=== PATIENT | female | born 1955 | race Hispanic/Latino ===

== ENCOUNTER 2019-12-29 08:03 | Observation (INO) | payer MEDICARE, OTHER ==
--- NOTE | 2019-12-25 14:36 | Diagnostic Imaging Report ---
X-ray chest 2 views Comparison: None. History: Preop Findings: Heart size normal. Ascending aorta appears ectatic possibly aneurysmal. Other mediastinal silhouettes unremarkable. No pleural effusion or pneumothorax. Lung chamberlain unremarkable. Upper abdomen unremarkable. Skeletal structures unremarkable. Impression: No acute cardiopulmonary disease. Significant dilatation of the descending aorta possibly aneurysmal. A CTA of the thoracic aorta should be considered. Signed by: Lux Walsh MD on 12/25/2019 2:33 PM
[~2019-12-29] VITALS: Ht 157.5 cm; Wt 84.8 kg
[~2019-12-29 08:03] MED LIST: CENTRUM ADULTS1 EACH PO; LISINOPRIL-HCT1 EACH PO; PRAVACHOL40 MG PO; ROPIVACAINE 246.25 MG, EPINEPHRINE HCL 1:1000 1ML 0.5 MG, CLONIDINE HCL 0.08 MG, KETORO... INJ ONE; VIT C PO; VIT E PO
[2019-12-29] MEDS ORDERED: TRANEXAMIC ACID 1,000 MG/10 ML ML ONE (08:24)
[2019-12-29] MEDS ORDERED: SODIUM CHLORIDE 0.9% 500ML 500 ML ONE (08:24)
[2019-12-29] MEDS ORDERED: VANCOMYCIN HCL 1,000 MG ONE (08:24)
[2019-12-29] MEDS ORDERED: CELECOXIB 200 MG CAP ONE (08:47)
[2019-12-29] MEDS ORDERED: DEXAMETHASONE SOD PHOS 10 MG/1 ML VIAL ONE (08:47)
[2019-12-29] MEDS ORDERED: CEFAZOLIN SOD 1 GM/NS 50ML 100 ML IV ONE (08:47)
[2019-12-29] MEDS ORDERED: GABAPENTIN 300 MG CAP ONE (08:47)
[2019-12-29] MEDS ORDERED: BACITRACIN 50,000 UNIT VIAL ONE (09:33)
[2019-12-29] MEDS ORDERED: HYDROGEN PEROXIDE 120 ML BTL ONE (11:39)
[2019-12-29] MEDS ORDERED: HYDROCODONE/APAP 7.5MG-325MG 1 EA TAB PO PRN (11:45)
[2019-12-29] MEDS ORDERED: DIPHENHYDRAMINE HCL INJ 50 MG/ML VIAL IV PRN (11:45)
[2019-12-29] MEDS ORDERED: ACETAMINOPHEN 650 MG SUPP PR PRN (11:45)
[2019-12-29] MEDS ORDERED: ONDANSETRON HCL INJ 2MG/ML 2ML 2 MG/ML VIAL IV PRN (11:45)
[2019-12-29] MEDS ORDERED: SODIUM CHLORIDE 0.9% 1000ML 1,000 ML IV SCH (11:45)
[2019-12-29] MEDS ORDERED: KETOROLAC TROMETHAMINE 30 MG/ML VIAL IV PRN (11:45)
[2019-12-29] MEDS ORDERED: HYDROCODONE/APAP 5MG-325MG TAB PO PRN (11:45)
[2019-12-29] MEDS ORDERED: DOCUSATE SODIUM 100 MG CAP PO PRN (11:45)
--- NOTE | 2019-12-29 12:23 | Diagnostic Imaging Report ---
Left knee, 2 views. History: Post op. Findings: Status post total left knee arthroplasty with prosthetic components in anatomic alignment. Overlying post-surgical air and skin oren are present. IMPRESSION: Status post left knee replacement in anatomic position. Signed by: Misael Hernandez on 12/29/2019 12:19 PM
--- OUTSIDE RECORDS SUMMARY | 2019-12-29 12:39 | XMS REPORT | Clinical Summary ---
Author Author [facility] Organization [facility] Address Unknown Phone Unavailable Care Team Providers Care Tool Liaison Name Role Phone Dakota Xavier MD PCP Pcp, No PCP Unavailable Allergies No Known Allergies Medications End Date Status Medication Sig Dispensed Refills Start Date Active Miscellaneous Medical ONE 1 Each 0 02/20 Supply Misc DISABILITY 7 [employer].. Active lisinopril-hydrochlorothi Take 1.5 135 tablet 0 azide (PRINZIDE, tablets by 8 ZESTORETIC) 20-12.5 mg mouth daily. per tabletIndications: Essential hypertension with goal blood pressure less than 140/90 Active atorvastatin (LIPITOR) 40 Take 1 tablet 90 tablet 0 mg tabletIndications: by mouth at 8 Dyslipidemia bedtime nightly. Active traMADol (ULTRAM) 50 mg Take 1 tablet 30 tablet 1 tabletIndications: by mouth 8 Bilateral chronic knee daily as pain needed for Pain. Active Miscellaneous Medical by 1 Each 0 Supply MiscIndications: Misc.(Non-Manolo 8 Bilateral chronic knee g; Combo pain Route) route One disability parking placard. Active naproxen (NAPROSYN) 500 Take 1 tablet 60 tablet 1 mg tabletIndications: by mouth 2 8 Chronic pain of both times daily knees (with meals). 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 08/14/2016 Dyslipidemia 11/16/2014 BMI 37.0-37.9, adult 11/16/2014 Essential hypertension, benign 08/20/2014 Closed fracture of part of fibula Immunizations Name Administration Dates Next Due Herpes Zoster Vaccine In 04/11/2015 Clinic Influenza Vaccine 07/17/2016 (Deferred: Patie nt Refused), 06/13/2015, 07/02/2014 Influenza Vaccine, 05/22/2017 Seasonal, Injectable Influenza, 04/23/2018 Vaccine<FLUCELVAX>(Multi- Dose) Tdap Tetanus, diphtheria, 04/11/2015 acellular pertussis Vaccine Family History Medical History Relation Name Comments Cancer Father prostate Stroke Father Arthritis Mother Hypertension Mother Relation Name Status Comments Brother Alive 3 Daughter Alive 1 Father STROKE Maternal Grandfather Maternal Grandmother Mother KIDNEY Paternal Grandfather Paternal Grandmother Sister Alive 4 Son Alive 3 Social History Date Tobacco Use Types Packs/Day Years Used Current Every Day Smoker Pipe, 0.25 30 Cigarettes Smokeless Tobacco: Never Used Tobacco Cessation: Counseling Given: No Comments: 3 cig/day Drinks/Week oz/Week Comments Alcohol Use No Food Insecurity Answer Date Recorded Within the past 12 months, you worried that your Never viji e 04/23/2018 food would run out before you got money to buy more. Within the past 12 months, the food you bought Never true 04/23/2018 just didn't last and you didn't have mo zaida to get more. Sex Assigned at Date Recorded Not on file Industry Job Start Date Occupation Not on file Not on file Not on file Travel End Travel History Travel Start No recent travel history available. Last Filed Vital Signs Not on file Plan of Treatment Health Maintenance Due Date Last Done Comments Breast Cancer Scrn 05/14/2019 05/14/2018, 017, 01/05/2016, (Yearly) Additional history exists Colonoscopy 3yr 09/06/2019 09/06/2016 IMM Pneumococcal Age 64 11/05/2019 and Up Results Not on fileafter 12/28/2018
--- OUTSIDE RECORDS SUMMARY | 2019-12-29 12:39 | XMS REPORT | Continuity of Care Document ---
Author Author [facility] t Organization [facility] Address [address] [place] [address] Phone Unavailable Care Team Providers Care Set Rider Name Role Phone Naomi Xavier MD PCP AASHISH CHRISTENSEN Attphys Unavailable ADRIAN ESPINOZA Admphydanny Unavailable Problems Condition Name Condition Details Condition Category Status Onset Date Resolution Date Last Treatment Date Treating Clinician Comments Source Right knee pain Right knee pain Disease Active 2018-06-12 00:00:00 [facility] Difficulty walking Difficulty walking Disease Active 2018-05-28 00:00:0 0 [facility] Chronic pain of both knees Chronic pain of both knees Disease Active 2018-05-15 00:00:00 [facility] Electronic cigarette use Electronic cigarette use Disease Acti ve 2017-11-18 00:00:00 [facility] Former cigarette smoker Former cigarette smoker Disease Active 2017-11-18 00:00:00 [facility] Gastroesophageal reflux disease Gastroesophageal reflux disease Dis ease Active 2017-11-18 00:00:00 [facility]alth Screening for osteoporosis Screening for osteoporosis Disease Active 2017-11-18 00:00:00 [facility] Right ankle swelling Right ankle swelling Disease Active 00:00:00 [facility] Acute right ankle pain Acute right ankle pain Disease Active 2017-01-18 00:00:00 [facility] Weakness of right lower extremity Weakness of right lower extrem ity Disease Active 2017-01-18 [facility] Impaired functional mobility, balance, and endurance I mpaired functional mobility, balance, and endurance Disease Active 2017-01-18 00:00:00 [facility] Tubular adenoma - repeat colonoscopy in 2019 Tubular a denoma - repeat colonoscopy in 2019 Disease Active 2016-10-31 00:00:00 [facility] Closed fracture of distal end of left fibula with nonu nion 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 Disease Active 2016-08-14 00:00:0 0 [facility] Dyslipidemia Dyslipidemia Disease Active 2014-11-16 00:00:00 [facility] BMI 37.0-37.9, adult BMI 37.0-37.9, adult Disease Active 00:00:00 [facility] Essential hypertension, benign Essential hypertension, benign Disea se Active 2014-08-20 00:00:00 [facility] Closed fracture of part of fibula Closed fracture of part of fib smith Disease Active [facility] Allergies, Adverse Reactions, Alerts This patient has no known allergies or adverse reactions. Family History Family Member Diagnosis Comments Start Date Stop Date Source Natural father [facility] Natural father [facility] Natural mother Arthritis [facility] Natural mother [facility] Social History Social Habit Start Date Stop Date Quantity Comments Source History of tobacco use Cigarette Smoker [facility] Sex Assigned At [facility] Cigarettes smoked current (pack per day) - Reported 00:00:00 2018-12-24 00:00:00 [facility] Cigarette pack-years 2018-12-24 00:00:00 2018-12-24 00:00:00 [facility] Alcohol intake 2018-12-24 00:00:00 2018-12-24 00:00:00 [facility] History SDOH Food Worry 2018-04-23 00:00:00 2018-04-23 00:00:00 [facility] SDOH Food Scarcity 2018-04-23 00:00:00 2018-04-23 00:00:00 1 [facility] Tobacco Comment 2014-07-02 00:00:00 2014-07-02 00:00:00 3 cig/day [facility] Smoking Status Start Date Stop Date Source Current every day smoker 2018-12-24 00:00:00 [facility] Medications Ordered Medication Name Filled Medication Name Start Date Stop Da te Current Medication? Ordering Clinician Indication Dosage Frequency Signature (SIG) Comments Components Source naproxen (NAPROSYN) 500 mg tablet 2018-05-19 00:00:00 Yes Chronic pain of both knees 500mg Take 1 tablet by mouth 2 times daily (with meal s). [facility] lisinopril-hydrochlorothiazide (PRINZIDE, ZESTORETIC) 20-12. 5 mg per tablet 2018-04-23 00:00:00 Yes Essential hy pertension with goal blood pressure less than 140/90 1.5{tbl} QD Take 1.5 tablets by mouth daily. [facility] atorvastatin (LIPITOR) 40 mg tablet 2018-04-23 00:00:00 Yes Dyslipidemia 40mg Take 1 tablet by mouth at bedtime nightly. [facility] traMADol (ULTRAM) 50 mg tablet 2018-04-23 00:00:00 Yes Bilateral chronic knee pain 50mg Take 1 tablet by mouth daily as needed for Pain . [facility] Miscellaneous Medical Supply [facility] 2018-04-23 00:00:00 Yes Bilateral chronic knee pain by [facility].(Non-Drug; C ombo Route) route One disability parking placard. [facility] Miscellaneous Medical Supply [facility] 2017-03-11 00:00:00 Yes ONE DISABILITY PARKING PLACARD.. [facility] Immunizations Ordered Immunization Name Filled Immunization Name Date Status Comments Source Influenza, Vaccine<FLUCELVAX>(Multi-Dose) 2018-04-23 00:00 :00 [facility] Influenza Vaccine, Seasonal, Injectable 2017-05-22 00:00:0 0 Completed [facility] Influenza Vaccine 2015-06-13 00:00:00 Completed [facility] Herpes Zoster Vaccine In Clinic 2015-04-11 00:00:00 Comple [facility] Tdap Tetanus, diphtheria, acellular pertussis Vaccine 2015-04-11 00:00:00 [facility] Influenza Vaccine 2014-07-02 00:00:00 [facility] Procedures This patient has no known procedures. Plan of Care Planned Activity Planned Date Details Comments Source Future Scheduled Test 2019-11-05 00:00:00 IMM Pneumococcal A ge 65 and Up [code = IMM Pneumococcal Age 65 and Up] [facility] Scheduled Test 2019-09-06 00:00:00 Colonoscopy 3yr [c ode = Colonoscopy 3yr] [facility] Scheduled Test 2019-05-14 00:00:00 Breast Cancer Scrn (Yearly) [code = Breast Cancer Scrn (Yearly)] [facility] Encounters Start Date/Time End Date/Time Encounter Type Admission Type Attendi [facility] Care Department Encounter ID Source 2019-03-16 00:00:00 2019-03-16 00:00:00 Outpatient [facility] [id number] [facility] 2018-10-14 14:12:17 2018-10-14 14:12:17 Outpatient [facility] [id number] [facility] 2018-08-05 00:00:00 2018-08-05 00:00:00 Outpatient [facility] [id number] [facility] 2018-07-23 00:00:00 2018-07-23 00:00:00 Outpatient [facility] [id number] [facility] 2018-07-11 00:00:00 2018-07-11 00:00:00 Outpatient [facility] [id number] [facility] 2018-06-24 10:09:07 2018-06-24 10:09:07 Outpatient [facility] [id number] [facility] 2018-06-23 00:00:00 2018-06-23 00:00:00 Outpatient [facility] [id number] [facility] 2018-06-17 00:00:00 2018-06-17 00:00:00 Outpatient [facility] [id number] [facility] 2018-06-16 08:23:11 2018-06-16 08:23:11 Outpatient [facility] [id number] [facility] 2018-06-16 08:18:06 2018-06-16 08:18:06 Outpatient [facility] [id number] [facility] 2018-06-12 15:03:09 2018-06-12 15:03:09 Emergency [facility] [id number] [facility] 2018-06-12 14:10:21 2018-06-12 14:10:21 Emergency [facility] [id number] [facility] 2018-06-11 08:04:14 2018-06-11 08:04:14 Outpatient [facility] [id number] [facility] 2018-06-06 00:00:00 2018-06-06 00:00:00 Outpatient [facility] [id number] [facility] 2018-06-05 10:30:54 2018-06-05 10:30:54 Outpatient [facility] [id number] [facility] 2018-06-05 08:15:32 2018-06-05 08:15:32 Outpatient [facility] [id number] [facility] 2018-05-28 13:30:18 2018-05-28 13:30:18 Outpatient [facility] [id number] [facility] 2018-05-28 00:00:00 2018-05-28 00:00:00 Outpatient [facility] [id number] [facility] 2018-05-19 10:43:44 2018-05-19 10:43:44 Outpatient [facility] [id number] [facility] 2018-05-19 10:41:42 2018-05-19 10:41:42 Outpatient [facility] [id number] [facility] 2018-05-14 09:59:39 2018-05-14 09:59:39 Outpatient [facility] [id number] [facility] 2018-05-14 08:44:13 2018-05-14 08:44:13 Outpatient [facility] [id number] [facility] 2018-05-14 08:36:17 2018-05-14 08:36:17 Outpatient [facility] [id number] [facility] 2018-04-24 00:00:00 2018-04-24 00:00:00 Outpatient [facility] [id number] [facility] 2018-04-23 16:05:38 2018-04-23 16:05:38 Outpatient [facility] [id number] [facility] 2018-04-23 14:43:20 2018-04-23 14:43:20 Outpatient [facility] [id number] [facility] 2017-12-18 09:26:27 2017-12-18 09:26:27 Outpatient [facility] [id number] [facility] 2017-12-04 10:14:53 2017-12-04 10:14:53 Outpatient [facility] [id number] [facility] 2017-11-20 13:04:52 2017-11-20 13:04:52 Outpatient [facility] [id number] [facility] 2017-11-18 13:49:07 2017-11-18 13:49:07 Outpatient [facility] [id number] [facility] 2017-07-03 08:07:55 2017-07-03 08:07:55 Outpatient [facility] [id number] [facility] 2017-05-22 09:19:33 2017-05-22 09:19:33 Outpatient [facility] [id number] [facility] 2017-05-21 10:54:37 2017-05-21 10:54:37 Outpatient [facility] [id number] [facility] 2017-05-02 13:58:18 2017-05-02 13:58:18 Outpatient [facility] [id number] [facility] 2017-04-29 08:55:45 2017-04-29 08:55:45 Outpatient [facility] [id number] [facility] 2017-04-24 09:03:24 2017-04-24 09:03:24 Outpatient [facility] [id number] [facility] 2017-04-09 00:00:00 2017-04-09 00:00:00 Outpatient [facility] [id number] [facility] 2017-04-03 13:20:56 2017-04-03 13:20:56 Outpatient [facility] [id number] [facility] 2017-03-21 00:00:00 2017-03-21 00:00:00 Outpatient [facility] [id number] [facility] 2017-03-13 07:41:17 2017-03-13 07:41:17 Outpatient [facility] [id number] [facility] 2017-03-13 00:00:00 2017-03-13 00:00:00 Outpatient [facility] [id number] [facility] 2017-03-07 10:40:08 2017-03-07 10:40:08 Outpatient [facility] [id number] [facility] 2017-02-27 15:05:17 2017-02-27 15:05:17 Outpatient [facility] [id number] [facility] 2017-02-27 12:50:14 2017-02-27 12:50:14 Outpatient [facility] [id number] [facility] 2017-02-27 09:46:46 2017-02-27 09:46:46 Outpatient [facility] [id number] [facility] 2017-02-27 00:00:00 2017-02-27 00:00:00 Outpatient [facility] [id number] [facility] 2017-02-20 00:00:00 2017-02-20 00:00:00 Outpatient [facility] [id number] [facility] 2017-02-05 15:55:05 2017-02-05 15:55:05 Outpatient [facility] [id number] [facility] 2017-01-31 10:16:31 2017-01-31 10:16:31 Outpatient [facility] [id number] [facility] 2017-01-23 09:37:36 2017-01-23 09:37:36 Outpatient [facility] [id number] [facility] 2017-01-08 09:48:34 2017-01-08 09:48:34 Outpatient [facility] [id number] [facility] Results Test Description Test Time Test Comments Results Result Comments Source KNEE LEFT 1-2 VIEWS 2019-12-29 12:19:00 [place] [address] Patient Name: ESTEPHANIA MOSS MR #: [id number] : 1955 Age/Sex: 64/F Req #: [id number] Adm Physician: Ordered by: AASHISH CHRISTENSEN MD Report #: [id number] Location: OR Room/Bed: Procedure: DX/KNEE LEFT 1-2 VIEWS Exam Date: Exam Time: REPORT STATUS: Signed Left knee, 2 views. History: Post op. Findings: Status post total left knee arthroplasty with prosthetic components in anatomic alignment. Overlying post-surgical air and skin oren are present. IMPRESSION: Status post left knee replacement in anatomic position. Signed by: Misael Hernandez on 12/29/2019 12:19 PM Dictated By: MISAEL HERNANDEZ MD 18 Transcribed By: URBANO on 12/29/191218 COPY TO: AASHISH CHRISTENSEN MD CHEST 2 VIEWS 2019-12-25 14:31:00 [place] [address] Patient Name: ESTEPHANIA MOSS MR #: [id number] : 1955 Age/Sex: 64/F Req #: [id number] Adm Physician: Ordered by: AASHISH CHRISTENSEN MD Report #: [id number] Location: OR Room/Bed: Procedure: [id number] DX/CHEST 2 VIEWS Exam Date: 12/25/19 Exam Time: 1250 REPORT STATUS: Signed X-ray chest 2 views Comparison: None. History: Preop Findings: Heart size normal. Ascending aorta appears ectatic possibly aneurysmal. Other mediastinal silhouettes unremarkable. No pleural effusion or pneumothorax. Lung chamberlain unremarkable. Upper abdomen unremarkable. Skeletal structures unremarkable. Impression: No acute cardiopulmonary disease. Significant dilatation of the descending aorta possibly aneurysmal. A CTA of the thoracic aorta should be considered. Signed by: Vlad Pickett MD on 12/25/2019 2:33 PM Dictated By: VLAD PICKETT MD [id number] Transcribed By: URBANO on 12/25/19 1433 COPY TO: AASHISH CHRISTENSEN MD
[2019-12-29 15:34] VITALS: BP 115/62
[2019-12-29 15:37] VITALS: BP 115/62
[2019-12-29 15:51] VITALS: BP 112/50
[2019-12-29] MEDS: CELECOXIB 100 MG CAP PO SCH (16:57)
[2019-12-29] MEDS: CEFAZOLIN SOD 1 GM/NS 50ML 50 ML IV SCH ×2 (16:57→23:29)
[2019-12-29] MEDS: ASPIRIN 325 MG TAB PO SCH (16:57)
[2019-12-29] MEDS ORDERED: ACETAMINOPHEN 1000 MG/100 ML IV PRN (17:00)
--- NOTE | 2019-12-29 18:04 | Operative Report ---
DATE OF PROCEDURE: 12/29/2019 SURGEON: Sudhir Barber MD MANAGER UTILIZATION REVIEW: Chinmay Weinstein, certified PA. PREOPERATIVE DIAGNOSIS: Osteoarthritis, left knee. POSTOPERATIVE DIAGNOSIS: Osteoarthritis, left knee. PROCEDURE: Left total knee arthroplasty. INDICATIONS: The patient is a 64-year-old lady, who has end-stage arthritis of her left knee. She has failed conservative management and would like to proceed with a left total knee replacement. The risks and benefits of the procedure have been discussed in detail. All of her questions have been answered. She states she understands and wishes to proceed. PROCEDURE IN DETAIL: The patient was brought to the operating room and placed under general anesthetic. Her left lower extremity was prepped and draped in a sterile manner. She received a regional block, tranexamic acid, and prophylactic antibiotics in the holding area. The left lower extremity was exsanguinated and a proximal tourniquet was inflated to 300 mmHg. An anterior incision with a medial parapatellar arthrotomy was performed. Clear synovial fluid was removed from the joint. Soft tissue releases were performed to bring the knee up into flexion with the patella everted. Notable marginal osteophytes were removed with a pair of rongeur forceps. Meniscal remnants and the cruciate ligaments were sacrificed. A [employer] knee system was used with ultracongruent tibial insert. Initial attention was directed towards the proximal tibia. The tibial cut was made with an extra medullary cutting guide. The tibial base plate was a size 4. The central fin punch was impacted and attention was directed towards the distal femur. An intramedullary cutting guide was used to resect the distal femur in 5 degrees of valgus and rotation, referencing off a combination of landmarks including Whitesides line, the epicondylar axis, and the posterior condyles. The femoral component was a size 6. The anterior and posterior cuts were made. Trial reductions were performed. A 9 mm ultracongruent tibial insert provided appropriate soft tissue balancing in full extension and 90 degrees of flexion. The patella was resurfaced with a 2 mm x 9 mm patellar button. The thickness was checked before and after resurfacing, it was right around 23 mm. Patellar tracking was noted to be concentric. All of the trial implants were removed. A 100 mL premixed pericapsular BEA injection was placed into the surrounding soft tissue. The knee was thoroughly irrigated with a shower tip pulsatile lavage in a diluted mixture of polymyxin and vancomycin spray. The components were cemented into place using a single mix of high viscosity Biomet cement preloaded with antibiotics. Care was taken to remove extravasated cement. The wound was further irrigated while the cement cured. The arthrotomy was then closed with interrupted #1 Ethibond. The knee was put through flexion and extension to ensure a secure closure of the arthrotomy. The skin was closed with subcuticular Vicryl and oren. A sterile Aquacel bandage was applied. The patient was extubated and transported to the recovery room in stable condition. Blood loss was minimal. All needle and sponge counts were correct. Sudhir Barber MD DR/MARLI /[id number]
[2019-12-29] MEDS ORDERED: SEVOFLURANE INHAL SOLN 250 ML PEN BTL ONE (18:26)
[2019-12-29] MEDS ORDERED: ROCURONIUM BROMIDE 10 MG/ML 5ML VIAL IV ONE (18:26)
[2019-12-29] MEDS ORDERED: ONDANSETRON HCL INJ 2MG/ML 2ML 2 MG/ML VIAL ONE (18:26)
[2019-12-29] MEDS ORDERED: LIDOCAINE HCL 2% LOCAL INJ 5 ML SDV VIAL INJ ONE (18:26)
[2019-12-29] MEDS ORDERED: LABETALOL HCL 5 MG/ML 20ML VIAL ONE (18:26)
[2019-12-29] MEDS ORDERED: PROPOFOL IV EMULSION 10 MG/ML 20 ML VIAL ONE (18:26)
[2019-12-29] MEDS ORDERED: NEOSTIGMINE 1 MG/ML 10ML VIAL ONE (18:26)
[2019-12-29] MEDS ORDERED: GLYCOPYRROLATE INJ 0.2 MG/ML VIAL ONE (18:26)
--- NOTE | 2019-12-29 19:10 | NUR ---
RECEIVED REPORT FROM PREVIOUS NURSE. CALL LIGHT WITHIN REACH. PATIENT IN BED.
[2019-12-29 20:00] VITALS: BP 117/58
[2019-12-29 20:17] VITALS: BP 112/50
[2019-12-29 20:59] VITALS: BP 117/58
[2019-12-29] MEDS ORDERED: ZOLPIDEM TARTRATE 5 MG TAB PO PRN (21:00)
[2019-12-30] VITALS: BP 97/51
[2019-12-30 04:00] VITALS: BP_SYST 111; BP_SYST 139; BP_DIAS 55; BP_DIAS 85
[2019-12-30 05:45] LABS: HEMATOCRIT 31.5 % (34.2-44.1); HEMOGLOBIN 10.4 g/dL (12.0-16.0)
--- NOTE | 2019-12-30 07:03 | NUR ---
GAVE BEDSIDE SHIFT REPORT TO ONCOMING NURSE. CALL LIGHT WITHIN REACH. PATIENT IN BED. HOURLY ROUNDING PERFORMED.
[2019-12-30 08:04] VITALS: BP 106/54
[2019-12-30] MEDS: CELECOXIB 100 MG CAP PO SCH (08:31)
[2019-12-30] MEDS: ASPIRIN 325 MG TAB PO SCH (08:31)
[2019-12-30] MEDS: CEFAZOLIN SOD 1 GM/NS 50ML 50 ML IV SCH (08:31)
--- NOTE | 2019-12-30 08:36 | NUR ---
DR SELLERS OFFICE PREARRANGED FOLLOWING DISCHARGE PLAN OF: [address] [facility] CONFIRMED WITH [phone] [facility] [employer] [facility] [employer]. AND CPM. PROVIDED BY [facility] [place] [phone] Alice GARCIA SIGNED AND ON CHART COPY LEFT WITH PATIENT GAVE CARD FOR QUESTIONS AND OR CONCERNS.
--- NOTE | 2019-12-30 09:27 | Consultation ---
DATE OF CONSULTATION: PRIMARY CARE PHYSICIAN: Dr. Stephon Galan MD. REASON FOR CONSULTATION: Medical management. HISTORY OF PRESENT ILLNESS: The patient is a 64 years female, status post left total knee replacement. The patient is postoperatively stable. No chest pain and no shortness of breath. The patient is given physical therapy. Left knee seemed to be stable. Dressing intact. PAST MEDICAL HISTORY: Hypertension and osteoarthritis. PAST SURGICAL HISTORY: Hysterectomy. SOCIAL HISTORY: The patient does not smoke or use alcohol. No regular drug use. ALLERGIES: VITAMIN E. HOME MEDICATIONS: List reviewed. REVIEW OF SYSTEMS: As mentioned above. Left knee postoperative pain appropriate. No chest pain or shortness of breath. PHYSICAL EXAMINATION: VITAL SIGNS: Temperature is 98, blood pressure 106/64, pulse rate 57, respirations 18. GENERAL: The patient is in no acute distress. HEENT: Normocephalic, atraumatic, and anicteric. NECK: Supple grossly. PULMONARY: Clear. CARDIOVASCULAR: regular rate and rhythm. ABDOMEN: Soft. EXTREMITIES: Status post left total knee replacement. NEUROLOGIC: No focal deficit. LABORATORY DATA: Hemoglobin and hematocrit is 10.4 and 31.5. IMPRESSION: 1. Hypertension, good control. 2. Osteoarthritis, status post left total knee arthroplasty. 3. Slight anemia, but no bleed. PLAN: Resume home medication on discharge. PT and OT. Pain control. Thank you, Dr. Barber for this consultation. We will follow up the patient until she is discharged. MD VARINDER Veronica/MODL /[id number]
[2019-12-30 12:27] VITALS: BP 122/50
--- NOTE | 2019-12-30 13:10 | NUR ---
Pt discharged home at this time. Pt is aox3 and able to verbalize needs. Pt verbalized understanding of all discharge instructions and follow up appointments. Dr. Barber called pain medications to pt pharmacy of choice. Dressing to left knee is dry and intact.
[2019-12-30] MEDS ORDERED: SIMVASTATIN 40 MG TAB PO SCH (21:00)
== END 2019-12-30 13:09 | disposition home or self-care (01) ==
LOC: OR 08:03 → PACU V 11:40 → MED/SURG 14:43
PROVIDERS: ADMIT Specialist; ATTEND Specialist
DX: M17.12 Unilateral primary osteoarthritis, left knee (principal); I10 Essential (primary) hypertension; D64.9 Anemia, unspecified; K21.9 Gastro-esophageal reflux disease without esophagitis; K44.9 Diaphragmatic hernia without obstruction or gangrene; E78.00 Pure hypercholesterolemia, unspecified; Z72.0 Tobacco use; Z82.3 Family history of stroke; Z82.62 Family history of osteoporosis; Z88.8 Allergy status to other drugs, medicaments and biological substances; Z11.59 Encounter for screening for other viral diseases; Z01.810 Encounter for preprocedural cardiovascular examination; Z01.812 Encounter for preprocedural laboratory examination; Z01.818 Encounter for other preprocedural examination
CPT/HCPCS: 27447; 36415; 71046; 73560; 85014; 85018; 86850; 86900; 86920; 87635; 93005; 97116 ×2; 97161; 97530; C1713; G0378 ×2; J0171; J0690 ×2; J1100; J1885; J2001; J2405; J2704; J2710; J2795; J3370; J3490; J7030; J7040

== ENCOUNTER 2021-01-16 05:31 | Observation (INO) | payer MEDICARE ==
[2021-01-12 11:05] LABS: BASOPHILS # (AUTO) 0.1 (0.0-0.1); BASOPHILS % 0.4 % (0.0-1.0); HEMATOCRIT 38.7 % (34.2-44.1); HEMOGLOBIN 12.9 g/dL (12.0-16.0); LYMPHOCYTES % 22.1 % (18.0-39.1); MEAN CORPUSCULAR HEMOGLOBIN 33.5 pg (28-32); MEAN CORPUSCULAR HGB CONC 33.3 g/dL (31-35); MEAN CORPUSCULAR VOLUME 100.5 fL (81-99); MONOCYTES # (AUTO) 1.1 (0.2-0.8); MONOCYTES % 8.1 % (4.4-11.3); NEUTROPHILS # (AUTO) 9.2 (2.1-6.9); NEUTROPHILS % 68.9 % (38.7-80.0); PLATELET COUNT 301 x10e3/uL (140-360); RED BLOOD COUNT 3.85 x10e6/uL (3.6-5.1); RED CELL DISTRIBUTION WIDTH 13.7 % (11.7-14.4)
[2021-01-12 11:40] LABS: ANION GAP 11.8 mmol/L (8-16); CALCIUM 9.5 mg/dL (8.4-10.2); CREATININE, SERUM 0.69 mg/dL (0.57-1.11); POTASSIUM 3.8 mmol/L (3.5-5.1)
[~2021-01-16] VITALS: Ht 157.5 cm; Wt 84.4 kg
[~2021-01-16 05:31] MED LIST changes: -ROPIVACAINE 246.25 MG, EPINEPHRINE HCL 1:1000 1ML 0.5 MG, CLONIDINE HCL 0.08 MG, KETORO... INJ ONE
[2021-01-16] MEDS ORDERED: DEXAMETHASONE SOD PHOS 10 MG/1 ML VIAL ONE (06:37)
[2021-01-16] MEDS ORDERED: CELECOXIB 200 MG CAP ONE (06:37)
[2021-01-16] MEDS ORDERED: SODIUM CHLORIDE 0.9% 50ML 100 ML ONE (06:37)
[2021-01-16] MEDS ORDERED: GABAPENTIN 300 MG CAP ONE (06:37)
[2021-01-16] MEDS ORDERED: SODIUM CHLORIDE 0.9% 500ML 500 ML ONE (06:53)
[2021-01-16] MEDS ORDERED: Vancomycin IV 1,000 MG ONE (06:53)
[2021-01-16] MEDS ORDERED: TRANEXAMIC ACID 1,000 MG/10 ML ML ONE (06:54)
[2021-01-16] MEDS ORDERED: ROPIVACAINE 246.25 MG, EPINEPHRINE HCL 1:1000 1ML 0.5 MG, CLONIDINE HCL 0.08 MG, KETORO... INJ ONE ×5 (08:00)
[2021-01-16] MEDS ORDERED: HYDROCODONE/APAP 5MG-325MG TAB PO PRN (09:15)
[2021-01-16] MEDS ORDERED: ONDANSETRON HCL INJ 2MG/ML 2ML 2 MG/ML VIAL IV PRN (09:15)
[2021-01-16] MEDS ORDERED: ACETAMINOPHEN 650 MG SUPP PR PRN (09:15)
[2021-01-16] MEDS ORDERED: DIPHENHYDRAMINE HCL INJ 50 MG/ML VIAL IV PRN (09:15)
[2021-01-16] MEDS ORDERED: ZOLPIDEM TARTRATE 5 MG TAB PO PRN (09:15)
[2021-01-16] MEDS ORDERED: DOCUSATE SODIUM 100 MG CAP PO PRN (09:15)
[2021-01-16] MEDS ORDERED: MEPERIDINE HCL INJ 25 MG/ML VIAL ONE (09:44)
[2021-01-16] MEDS ORDERED: FENTANYL CITRATE/PF 100MCG/2 ML INJ ONE ×2 (10:05→12:29)
[2021-01-16] MEDS ORDERED: ROPIVACAINE 0.5% 5 MG/ML 30 ML SDV ONE (10:26)
[2021-01-16] MEDS ORDERED: LIDOCAINE 2%/ EPINEPHRINE 20ML MDV ONE (10:26)
[2021-01-16 11:18] VITALS: BP 119/61
[2021-01-16] MEDS: SODIUM CHLORIDE 0.9% 1000ML 1,000 ML IV SCH ×2 (11:30→21:00)
[2021-01-16 11:35] VITALS: BP 139/75
[2021-01-16] MEDS ORDERED: MIDAZOLAM HCL 2 MG/2 ML VIAL ONE (12:29)
[2021-01-16 16:06] VITALS: BP 118/54
[2021-01-16] MEDS: Cefazolin 1 GM in SODIUM CHLORIDE 0.9% 50ML 50 ML IV SCH ×2 (16:24→23:36)
[2021-01-16] MEDS: ASPIRIN 325 MG TAB PO SCH (16:24)
[2021-01-16] MEDS: CELECOXIB 200 MG CAP PO SCH (16:24)
[2021-01-16] MEDS ORDERED: PROPOFOL IV EMULSION 10 MG/ML 20 ML VIAL ONE (19:30)
[2021-01-16] MEDS ORDERED: PHENYLEPHRINE HCL 1% 10 MG/ML VIAL ONE (19:30)
[2021-01-16] MEDS ORDERED: LIDOCAINE HCL 2% LOCAL INJ 5 ML SDV VIAL INJ ONE (19:30)
[2021-01-16] MEDS ORDERED: DEXAMETHASONE SOD PHOS INJ 4 MG/ML VIAL ONE (19:30)
[2021-01-16] MEDS ORDERED: SEVOFLURANE INHAL SOLN 250 ML PEN BTL ONE (19:30)
[2021-01-16] MEDS ORDERED: POVIDONE IODINE 0.05% 0.05 % ML PO ONE (19:30)
[2021-01-16] MEDS ORDERED: KETOROLAC TROMETHAMINE 30 MG/ML VIAL ONE (19:30)
[2021-01-16] MEDS ORDERED: ONDANSETRON HCL INJ 2MG/ML 2ML 2 MG/ML VIAL ONE (19:30)
[2021-01-16 20:00] VITALS: BP 140/67
[2021-01-16] MEDS: HYDROCODONE/APAP 7.5MG-325MG 1 EA TAB PO PRN (21:02)
[2021-01-16 21:16] VITALS: BP 140/67
[2021-01-16] MEDS ORDERED: HYDRALAZINE HCL 25 MG TAB PO PRN (22:00)
[2021-01-16] MEDS: KETOROLAC TROMETHAMINE 30 MG/ML VIAL IV PRN (23:47)
[2021-01-17] VITALS: BP 119/63
[2021-01-17 04:00] VITALS: BP 123/63
[2021-01-17 06:03] LABS: BASOPHILS % 0.3 % (0.0-1.0); HEMATOCRIT 29.3 % (34.2-44.1); HEMOGLOBIN 9.8 g/dL (12.0-16.0); LYMPHOCYTES # (AUTO) 2.3 (1.0-3.2); LYMPHOCYTES % 19.9 % (18.0-39.1); MEAN CORPUSCULAR HEMOGLOBIN 33.4 pg (28-32); MEAN CORPUSCULAR HGB CONC 33.4 g/dL (31-35); MONOCYTES # (AUTO) 1.2 (0.2-0.8); MONOCYTES % 10.6 % (4.4-11.3); NEUTROPHILS % 68.8 % (38.7-80.0); PLATELET COUNT 218 x10e3/uL (140-360); RED BLOOD COUNT 2.93 x10e6/uL (3.6-5.1); RED CELL DISTRIBUTION WIDTH 13.5 % (11.7-14.4)
[2021-01-17] MEDS: KETOROLAC TROMETHAMINE 30 MG/ML VIAL IV PRN (06:07)
[2021-01-17 06:20] LABS: ANION GAP 10.9 mmol/L (8-16); CALCIUM 8.4 mg/dL (8.4-10.2); CREATININE, SERUM 0.69 mg/dL (0.57-1.11); POTASSIUM 3.9 mmol/L (3.5-5.1)
[2021-01-17] MEDS: Cefazolin 1 GM in SODIUM CHLORIDE 0.9% 50ML 50 ML IV SCH (08:00)
[2021-01-17 08:06] VITALS: BP 134/67
[2021-01-17 08:35] VITALS: BP 134/67
[2021-01-17] MEDS ORDERED: ACETAMINOPHEN 1000 MG/100 ML IV PRN (09:15)
[2021-01-17] MEDS: HYDROCODONE/APAP 7.5MG-325MG 1 EA TAB PO PRN (09:24)
[2021-01-17] MEDS: ASPIRIN 325 MG TAB PO SCH (09:25)
[2021-01-17] MEDS: CELECOXIB 200 MG CAP PO SCH (09:25)
[2021-01-17] MEDS ORDERED: ONDANSETRON HCL 4 MG ORAL DISINTEGRATING TAB PO PRN (10:00)
== END 2021-01-17 11:27 | disposition home or self-care (01) ==
LOC: OR 05:31 → PACU V 09:11 → MED/SURG 10:30
PROVIDERS: ADMIT Specialist; ATTEND Specialist
DX: M17.0 Bilateral primary osteoarthritis of knee (principal); Z96.652 Presence of left artificial knee joint; I10 Essential (primary) hypertension; K29.70 Gastritis, unspecified, without bleeding; Z01.818 Encounter for other preprocedural examination
CPT/HCPCS: 27447; 36415 ×2; 73560; 80048 ×2; 85025 ×2; 86850; 86900; 86920; 97116 ×2; 97161; 97530; C1713 ×4; C1776; G0378 ×2; J0171; J0690 ×2; J1100 ×2; J1885 ×2; J2001 ×2; J2175; J2250; J2370; J2405; J2704; J2795; J3010; J3370; J7030; J7040

== ENCOUNTER → 2022-02-22 | Day surgery (SDC) | payer MEDICARE ==
[2022-02-20 09:55] LABS: BASOPHILS # (AUTO) 0.1 (0.0-0.1); BASOPHILS % 0.5 % (0.0-1.0); HEMATOCRIT 38.3 % (34.2-44.1); HEMOGLOBIN 12.9 g/dL (12.0-16.0); LYMPHOCYTES # (AUTO) 2.5 (1.0-3.2); MEAN CORPUSCULAR HEMOGLOBIN 34.3 pg (28-32); MEAN CORPUSCULAR HGB CONC 33.7 g/dL (31-35); MEAN CORPUSCULAR VOLUME 101.9 fL (81-99); MONOCYTES # (AUTO) 0.9 (0.2-0.8); MONOCYTES % 8.2 % (4.4-11.3); NEUTROPHILS # (AUTO) 7.5 (2.1-6.9); NEUTROPHILS % 68.1 % (38.7-80.0); PLATELET COUNT 275 x10e3/uL (140-360); RED BLOOD COUNT 3.76 x10e6/uL (3.6-5.1); RED CELL DISTRIBUTION WIDTH 14.1 % (11.7-14.4)
[2022-02-20 10:50] LABS: ANION GAP 11.8 mmol/L (8-16); CREATININE, SERUM 0.66 mg/dL (0.57-1.11); POTASSIUM 3.8 mmol/L (3.5-5.1)
[~2022-02-22] MED LIST changes: +BALANCED SALT SOLN (OPTH) 15 ML BTL IO ONE; +BUPIVACAINE HC 0.75% PF 10ML VIAL INJ ONE; +CITRACAL + D E1 EACH PO; +CYCLOPENTOLATE HCL 2% OPTH SOLN 2 ML BTL OP ONE; +EPINEPHRINE HCL 1:1000 1ML 1 MG/ML AMP ONE; +GATIFLOXACIN(OPTH) 5 ML LIQD ONE; +LIDOCAINE 2% /EPINEPHRINE 20 ML SDV INJ ONE; +LIDOCAINE HCL-PF 4% 40 MG/1 ML 5ML AMP ONE; +PHENYLEPHRINE HCL 2 ML DROPS ONE; +PILOCARPINE HCL(OPTH) 15 ML LIQD ONE; +POVIDONE IODINE 0.05% 0.05 % ML PO ONE; +POVIDONE IODINE 5% (OPTH) 30 ML BTL ONE; +PRILOSEC OTC20 MG PO; +PROPOFOL IV EMULSION 10 MG/ML 20 ML VIAL ONE; +TOBRAMYCIN/DEXAMETHASONE(OPTH) 3.5 GM TUBE ONE
[2022-02-22 09:25] VITALS: BP 126/61
== END | disposition home or self-care (01) ==
LOC: OR 06:18
PROVIDERS: ATTEND Ophthalmology
DX: H25.12 Age-related nuclear cataract, left eye (principal); I10 Essential (primary) hypertension; E78.5 Hyperlipidemia, unspecified; K21.9 Gastro-esophageal reflux disease without esophagitis; K44.9 Diaphragmatic hernia without obstruction or gangrene; F17.210 Nicotine dependence, cigarettes, uncomplicated; Z91.048 Other nonmedicinal substance allergy status; Z01.810 Encounter for preprocedural cardiovascular examination; Z01.812 Encounter for preprocedural laboratory examination; Z20.822 Contact with and (suspected) exposure to COVID-19; Z79.899 Other long term (current) drug therapy
CPT/HCPCS: 0223U; 36415; 66984; 80048; 85025; 93005; J0171; J2001; V2632

== ENCOUNTER → 2022-04-19 | Day surgery (SDC) | payer MEDICARE ==
[2022-04-17 10:57] LABS: HEMATOCRIT 39.7 % (34.2-44.1)
[2022-04-17 11:18] LABS: ANION GAP 11.9 mmol/L (8-16); CALCIUM 9.5 mg/dL (8.4-10.2); CREATININE, SERUM 0.72 mg/dL (0.57-1.11); POTASSIUM 3.9 mmol/L (3.5-5.1)
[~2022-04-19] MED LIST changes: -LIDOCAINE 2% /EPINEPHRINE 20 ML SDV INJ ONE; +LIDOCAINE HCL 2% LOCAL INJ 5 ML SDV VIAL INJ ONE; -LIDOCAINE HCL-PF 4% 40 MG/1 ML 5ML AMP ONE
[2022-04-19 10:55] VITALS: BP 120/78
== END | disposition home or self-care (01) ==
LOC: OR 08:11
PROVIDERS: ATTEND Ophthalmology
DX: H25.11 Age-related nuclear cataract, right eye (principal); K21.9 Gastro-esophageal reflux disease without esophagitis; K44.9 Diaphragmatic hernia without obstruction or gangrene; I10 Essential (primary) hypertension; E78.5 Hyperlipidemia, unspecified; F41.9 Anxiety disorder, unspecified; F17.210 Nicotine dependence, cigarettes, uncomplicated; Z01.812 Encounter for preprocedural laboratory examination
CPT/HCPCS: 36415; 66984; 80048; 85014; 85018; J2001; J2704; V2632; J0171

== ENCOUNTER 2024-03-19 13:00 | Outpatient (RCR) | payer MEDICARE ==
[~2024-03-19 13:00] MED LIST changes: -BALANCED SALT SOLN (OPTH) 15 ML BTL IO ONE; -BUPIVACAINE HC 0.75% PF 10ML VIAL INJ ONE; -CYCLOPENTOLATE HCL 2% OPTH SOLN 2 ML BTL OP ONE; -EPINEPHRINE HCL 1:1000 1ML 1 MG/ML AMP ONE; -GATIFLOXACIN(OPTH) 5 ML LIQD ONE; -LIDOCAINE HCL 2% LOCAL INJ 5 ML SDV VIAL INJ ONE; +NIFEDIPINE ER30 M1 PO; -PHENYLEPHRINE HCL 2 ML DROPS ONE; -PILOCARPINE HCL(OPTH) 15 ML LIQD ONE; -POVIDONE IODINE 0.05% 0.05 % ML PO ONE; -POVIDONE IODINE 5% (OPTH) 30 ML BTL ONE; -PROPOFOL IV EMULSION 10 MG/ML 20 ML VIAL ONE; -TOBRAMYCIN/DEXAMETHASONE(OPTH) 3.5 GM TUBE ONE
== END 2024-03-21 ==
LOC: PT 13:00
PROVIDERS: ATTEND Specialist
DX: M70.61 Trochanteric bursitis, right hip (principal); M62.81 Muscle weakness (generalized); R26.2 Difficulty in walking, not elsewhere classified

== ENCOUNTER 2024-04-02 13:00 | Outpatient (RCR) | payer MEDICARE | END 2024-04-20 | LOC: PT 13:00 | PROVIDERS: ATTEND Specialist | DX: Z96.651 Presence of right artificial knee joint (principal); M25.561 Pain in right knee; M62.81 Muscle weakness (generalized) ==